=== PATIENT | female | born 1960 | race Caucasian/White ===

== ENCOUNTER 2019-01-04 11:21 | Emergency (ER) | payer BC ==
--- NOTE | 2019-01-04 12:58 | EDM.PDOC ---
ED HPI GENERAL MEDICAL PROBLEM - General Chief Complaint: Cardiovascular Problem Stated Complaint: HEART FLUTTERING, LEFT ARM NUMB Time Seen by Provider: 01/04/19 11:45 Source of Information: Reports: Patient, Family History Limitations: Reports: No Limitations - History of Present Illness INITIAL COMMENTS - FREE TEXT/NARRATIVE: 58-year-old female, healthy, had just finished a long walk when she sat down and felt some palpitations and fluttering for 2-3 seconds. Her pulse had gone from 60-120 fairly rapidly according to the patient. She developed some slight numbness in her left arm, no chest pain or shortness of breath. It scared her so she thought she would come in to have it checked. She had a similar episode several years ago and her workup was negative. She had no symptoms while walking. 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 (See Below) Other MANUFACTURING ASSEMBLER History: KEYSHAWN/BSO Musculoskeletal History: Reports: Fibromyalgia Hematologic History: Reports: Other (See Below) Other Hematologic History: lypoprotein positive Immunologic History: Reports: Immunosuppression Oncologic (Cancer) History: Reports: Other (See Below) Other Oncologic History: skin - Past Surgical History Head Surgeries/Procedures: Reports: None GI Surgical History: Reports: Appendectomy Endocrine Surgical History: Reports: None Musculoskeletal Surgical History: Reports: None Oncologic Surgical History: Reports: Other (See Below) Other Oncologic Surgeries/Procedures: rmoved and biopsied Dermatological Surgical History: Reports: Skin Biopsy Social & Family History - Family History Family Medical History: Noncontributory - Tobacco Use Smoking Status *Q: Never Smoker Second Hand Smoke Exposure: No - Caffeine Use Caffeine Use: Reports: Coffee, Tea - Recreational Drug Use Recreational Drug Use: No ED ROS GENERAL - Review of Systems Review Of Systems: See Below Constitutional: Denies: Fever, Chills, Malaise HEENT: Reports: No Symptoms Respiratory: Denies: Shortness of Breath Cardiovascular: Reports: Palpitations. Denies: Chest Pain GI/Abdominal: Denies: Nausea, Vomiting : Reports: No Symptoms Skin: Reports: No Symptoms Neurological: Reports: Paresthesia (Some numbness in the left arm, no weakness) Psychiatric: Reports: Anxiety (Very nervous about symptoms) ED EXAM, GENERAL - Physical Exam Exam: See Below Exam Limited By: No Limitations General Appearance: Alert, No Apparent Distress, Anxious Head: Atraumatic Neck: Supple Respiratory/Chest: No Respiratory Distress, Lungs Clear Cardiovascular: Regular Rate, Rhythm. No: Extra Beats GI/Abdominal: Soft, Non-Tender Extremities: Normal Inspection. No: Pedal Edema Neurological: Alert, Oriented Psychiatric: Anxious (Patient was initially anxious but she calmed down, blood pressure normalized while in the emergency room) Skin Exam: Warm, Dry EKG INTERPRETATION Rhythm: NSR Course - Vital Signs Last Recorded V/S: Last Vital Signs Temp 92.8 F L 01/04/19 11:32 Pulse 87 01/04/19 12:39 Resp 11 L 01/04/19 12:39 BP 136/68 01/04/19 12:39 Pulse Ox 95 01/04/19 12:39 - Orders/Labs/Meds Orders: Active Orders 24 hr Category Date Time Status EKG Documentation Completion [RC] ASDIRECTED Care 01/04/19 12:07 Active EKG 12 Lead [EK] Routine Ther 01/04/19 12:07 Ordered Labs: Laboratory Tests 01/04/19 01/04/19 Range/Units 12:13 12:13 WBC 8.1 (4.5-11.0) K/uL RBC 4.47 (3.30-5.50) M/uL Hgb 13.7 (12.0-15.0) g/dL Hct 42.0 (36.0-48.0) % MCV 94 (80-98) fL MCH 31 (27-31) pg MCHC 33 (32-36) % Plt Count 252 (150-400) K/uL Neut % (Auto) 77 H (36-66) % Lymph % (Auto) 17 L (24-44) % Mclean % (Auto) 5 (2-6) % Eos % (Auto) 1 L (2-4) % Baso % (Auto) 0 (0-1) % Sodium 139 L (140-148) mmol/L Potassium 4.1 (3.6-5.2) mmol/L Chloride 103 (100-108) mmol/L Carbon Dioxide 28 (21-32) mmol/L Anion Gap 12.1 (5.0-14.0) mmol/L BUN 15 (7-18) mg/dL Creatinine 0.6 (0.6-1.0) mg/dL Est Cr Clr Drug Dosing 89.33 mL/min Estimated GFR (MDRD) > 60 (>60) Glucose 107 H (74-106) mg/dL Calcium 9.2 (8.5-10.1) mg/dL Total Bilirubin 0.4 (0.2-1.0) mg/dL AST 19 (15-37) U/L ALT 18 (12-78) U/L Alkaline Phosphatase 91 (46-116) U/L Troponin I < 0.017 (0.000-0.056) ng/mL Total Protein 6.7 (6.4-8.2) g/dL Albumin 3.6 (3.4-5.0) g/dL Globulin 3.1 (2.3-3.5) g/dL Albumin/Globulin Ratio 1.2 (1.2-2.2) - Re-Assessments/Exams Free Text/Narrative Re-Assessment/Exam: 01/04/19 12:57 EKG was done which was normal, after discussion of the symptoms at the patient a CBC, CMP and troponin were obtained. These were all normal as well. She was on the monitor for over an hour and had nothing but normal sinus rhythm. We discussed a Holter monitor which she has had in the past but she may talk to her primary provider about repeating if her symptoms are persistent. No need for hospitalization. Departure - Departure Time of Disposition: 13:18 Disposition: Home, Self-Care 01 Condition: Good Clinical Impression: Palpitations Instructions: Palpitations Referrals: PCP,None [Primary Care Provider] - Forms: ED Department Discharge Care Plan Goals: Continue any current medications and activity. Return anytime if symptoms recur and are persistent or you develop other concerns. Follow up with your primary provider with lab and EKG as you feel necessary. - My Orders Last 24 Hours: My Active Orders 01/04/19 12:07 EKG Documentation Completion [RC] ASDIRECTED EKG 12 Lead [EK] Routine - Assessment/Plan Last 24 Hours: My Active Orders 01/04/19 12:07 EKG Documentation Completion [RC] ASDIRECTED EKG 12 Lead [EK] Routine
== END 2019-01-04 13:20 | disposition home or self-care (01) ==
LOC: JP.ED 11:21
DX: R00.2 Palpitations (principal); Z88.8 Allergy status to other drugs, medicaments and biological substances; Z88.2 Allergy status to sulfonamides; Z79.899 Other long term (current) drug therapy; Z79.82 Long term (current) use of aspirin
CPT/HCPCS: 36415; 80053; 84484; 85025; 93005; 99284-25